=== PATIENT | male | born 1985 | race African-American/Black ===

== ENCOUNTER 2019-06-28 16:44 | Emergency (ER) | payer OTHER ==
[~2019-06-28] VITALS: Ht 175.3 cm; Wt 69.3 kg
[2019-06-28 16:44] VITALS: BP 121/72
[2019-06-28] MEDS ORDERED: IBUP200C25 PO (16:53)
--- NOTE | 2019-06-28 17:55 | REP ---
Clinical: Cough and fever . Comparison: None . Findings: The mediastinum and cardiac silhouette are stable and within normal limits for portable technique. The lung caceres are clear without acute consolidation, effusion, or pneumothorax. Skeletal structures are intact. Impression: No acute cardiopulmonary process appreciated. Electronically Signed by Alberto Jorge MD 06/28/2019 05:47 P
--- NOTE | 2019-06-28 20:18 | ED PDOC ---
Post-Departure Follow-Up called patient with respiratory panel results. standard URI precautions and education given. all questions answered. JAMES FINN PA-C. Jun 28, 2019 20:18
== END 2019-06-28 18:08 | disposition home or self-care (01) ==
LOC: M ED 16:44
DX: J06.9 Acute upper respiratory infection, unspecified (principal); F17.210 Nicotine dependence, cigarettes, uncomplicated